=== PATIENT | female | born 1970 | race Caucasian/White ===

== ENCOUNTER 2020-11-01 20:25 | Emergency (ER) | payer OTHER ==
[~2020-11-01] VITALS: Ht 165.1 cm; Wt 68.0 kg
[2020-11-01] MEDS ORDERED: OMEPRAZOLE 20 M20 M1 PO (20:58)
[2020-11-01] MEDS ORDERED: SINGULAIR 10 MG10 M1 PO (20:59)
[2020-11-01] MEDS ORDERED: TRAZODONE HCL50 MG PO (20:59)
[2020-11-01 21:13] LABS: ABSOLUTE LYMPHOCYTES 0.8 thou/uL (0.8-5.3); ABSOLUTE MONOCYTES 0.6 thou/uL (0.0-1.2); ABSOLUTE NEUTROPHILS 2.6 thou/uL (1.6-8.1); BASOPHILS 1.1 %; EOSINOPHILS 0.3 %; HEMATOCRIT 40.7 % (37.0-47.0); HEMOGLOBIN 13.6 gm/dL (12.0-15.0); LYMPHOCYTES 19.7 %; MCH 33.7 pg (26.0-34.0); MCHC 33.5 g/dL (28.0-37.0); MCV 100.5 fL (80.0-100.0); MONOCYTES 14.3 %; MPV 8.3 fl. (7.2-11.1); NUCLEATED RBCS 0 /100WBC; PLATELET COUNT* 136 thou/uL (150-400); POLYS 64.6 %; RBC 4.05 mil/uL (4.20-5.00); WBC 4.1 thou/uL (4.0-11.0)
[2020-11-01 21:33] LABS: CALCIUM 8.9 mg/dL (8.5-10.1); CREATININE 0.7 mg/dL (0.6-1.3); POTASSIUM 3.8 mmol/L (3.5-5.1)
[2020-11-01 21:38] LABS: ALBUMIN 3.5 g/dL (3.4-5.0); MAGNESIUM 1.2 mg/dL (1.8-2.4); TOTAL BILIRUBIN 0.8 mg/dL (<0.1-1.0); TOTAL PROTEIN 7.1 g/dL (6.4-8.2)
[2020-11-01 22:40] LABS: URINE BILIRUBIN NEGATIVE (Negative); URINE BLOOD NEGATIVE (Negative); URINE CLARITY CLEAR; URINE COLOR YELLOW; URINE GLUCOSE-RANDOM NEGATIVE (Negative); URINE KETONES NEGATIVE (Negative); URINE LEUKOCYTES-REFLEX NEGATIVE (Negative); URINE NITRITE-REFLEX NEGATIVE (Negative); URINE PROTEIN NEGATIVE (Negative); URINE SPECIFIC GRAVITY <= 1.005 (1.005-1.030); URINE UROBILINOGEN 0.2 E.U./dl (0.2-1.0)
[2020-11-01] MEDS ORDERED: ZOFRAN ODT4 MG PO (23:40)
[2020-11-02 00:38] VITALS: BP 112/83
--- NOTE | 2020-11-02 13:44 | EKG ---
[place] [address] ELECTROCARDIOGRAM REPORT Name: ANGEL MARTÍNEZ Room: [facility]#: [id number] Admission: 11/01/20 Attend Phys: Discharge: 11/02/20 Date of : 68 Date of Service: 11/01/202052 Report #: [id number] THIS REPORT FOR: //name// [facility] ED Test Date: 2020-11-01 Test Time: 20:53:43 Pat Name: ANGEL MARTÍNEZ Department: Room: Gender: F Cytopathologist: [place] : 1970 Requested By: Shahla Bowden Order Number: [id number] Reading MD: Mando Erickson Measurements Intervals Oden Rate: 83 P: 35 AK: 138 QRS: 58 QRSD: 82 T: 11 QT: 368 QTc: 433 Interpretive Statements Sinus rhythm Borderline T abnormalities, anterior leads No previous ECG available for comparison Electronically Signed On 11-02-2020 13:44:02 [employer] by Mando Erickson [email or web address] <ELECTRONICALLY SIGNED> By: Mando Erikcson MD, [facility] 11/02/20 1344 52 52 Mando Erickson MD, FACC /EPI
== END 2020-11-02 00:38 | disposition home or self-care (01) ==
LOC: M.ERS 20:25
PROVIDERS: Emergency Medicine
DX: K52.9 Noninfective gastroenteritis and colitis, unspecified (principal); E83.42 Hypomagnesemia; Z20.828 Contact with and (suspected) exposure to other viral communicable diseases; K21.9 Gastro-esophageal reflux disease without esophagitis; J45.909 Unspecified asthma, uncomplicated; Z88.2 Allergy status to sulfonamides; Z88.8 Allergy status to other drugs, medicaments and biological substances

== ENCOUNTER 2021-03-16 00:09 | Emergency (ER) | payer OTHER ==
[~2021-03-16] VITALS: Ht 165.1 cm; Wt 61.2 kg
[~2021-03-16 00:09] MED LIST: OMEPRAZOLE 20 M20 M1 PO; SINGULAIR 10 MG10 M1 PO; TRAZODONE HCL50 MG PO; ZOFRAN ODT4 MG PO
[2021-03-16 01:04] LABS: HEMATOCRIT 38.8 % (37.0-47.0); HEMOGLOBIN 13.5 gm/dL (12.0-15.0); MCH 34.8 pg (26.0-34.0); MCHC 34.8 g/dL (28.0-37.0); MCV 99.9 fL (80.0-100.0); RBC 3.88 mil/uL (4.20-5.00); RDW-CV 15.1 % (10.5-14.5); WBC 5.4 thou/uL (4.0-11.0)
[2021-03-16 01:26] LABS: ALCOHOL < 10 mg/dL (<10)
[2021-03-16 01:27] LABS: ACETAMINOPHEN < 2 ug/mL (10-30)
[2021-03-16 01:46] LABS: CALCIUM 9.1 mg/dL (8.5-10.1); CREATININE 0.7 mg/dL (0.6-1.3); POTASSIUM 3.5 mmol/L (3.5-5.1)
[2021-03-16 01:51] LABS: ALBUMIN 3.8 g/dL (3.4-5.0); TOTAL BILIRUBIN 0.9 mg/dL (<0.1-1.0); TOTAL PROTEIN 7.8 g/dL (6.4-8.2)
[2021-03-16 01:52] LABS: URINE BILIRUBIN 1+ (Negative); URINE BLOOD TRACE (Negative); URINE CLARITY CLEAR; URINE COLOR YELLOW; URINE GLUCOSE-RANDOM NEGATIVE (Negative); URINE KETONES 2+ (Negative); URINE LEUKOCYTES NEGATIVE (Negative); URINE NITRITE NEGATIVE (Negative); URINE PROTEIN 2+ (Negative); URINE SPECIFIC GRAVITY >= 1.030 (1.005-1.030); URINE UROBILINOGEN 0.2 E.U./dl (0.2-1.0)
[2021-03-16 01:55] LABS: ICTOTEST (BILI CONFIRMATORY) Negative (Negative)
[2021-03-16 01:58] LABS: AMP/METHAMP Negative (Negative); BARBITURATES Negative (Negative); BENZODIAZEPINES Negative (Negative); COCAINE Negative (Negative); METHADONE Negative (Negative); OPIATES Negative (Negative); PCP Negative (Negative); THC POSITIVE (Negative)
[2021-03-16 02:03] LABS: CASTS None Seen /LPF (None Seen); SQUAMOUS 4-10 Moderate /LPF (0-3)
[2021-03-16 02:05] LABS: BACTERIA 1-9 Few /HPF (None Seen); CRYSTALS None Seen /LPF (None Seen); URINE RBC 0-2 Rare /HPF (0-2); URINE WBC 0-5 Rare /HPF (0-5)
[2021-03-16] MEDS ORDERED: CHLORDIAZEPOXID25 M1 PO (05:35)
[2021-03-16] MEDS ORDERED: ZOFRAN ODT4 MG PO (05:35)
[2021-03-16 05:42] VITALS: BP 150/94
--- NOTE | 2021-03-17 11:46 | EKG ---
[place] [address] ELECTROCARDIOGRAM REPORT Name: ANGEL MARTÍNEZ Room: [facility]#: [id number] Admission: 03/16/21 Attend Phys: Discharge: 03/16/21 Date of : 68 Date of Service: 03/16/21 0048 Report #: [id number] THIS REPORT FOR: //name// [facility] ED Test Date: 2021-03-16 Test Time: 00:48:50 Pat Name: ANGEL MARTÍNEZ Department: Room: Gender: F Mapping Analyst: SHAMEKA : 1970 Requested By: Shirlene Lunsford Order Number: [id number] MD: Randy Huang Measurements Intervals Rousseau Rate: 86 P: 53 ME: 135 QRS: 29 QRSD: 84 T: -1 QT: 400 QTc: 479 Interpretive Statements Sinus rhythm Anteroseptal infarct, age indeterminate, possible Compared to ECG 11/01/2020 20:53:43 Myocardial infarct finding now present T-wave abnormality no longer present Electronically Signed On 03-17-2021 11:46:08 CDT by Randy Huang [email or web address] <ELECTRONICALLY SIGNED> By: Randy Huang MD, [facility] 03/17/21 1146 0048 0048 Randy Huang MD, [facility] /EPI
== END 2021-03-16 05:44 | disposition home or self-care (01) ==
LOC: M.ERS 00:09
PROVIDERS: Personal Emergency Response Attendant
DX: R11.2 Nausea with vomiting, unspecified (principal); F10.239 Alcohol dependence with withdrawal, unspecified; Y90.0 Blood alcohol level of less than 20 mg/100 ml; K21.9 Gastro-esophageal reflux disease without esophagitis; J45.909 Unspecified asthma, uncomplicated; Z88.2 Allergy status to sulfonamides; Z88.8 Allergy status to other drugs, medicaments and biological substances; Z79.899 Other long term (current) drug therapy